=== PATIENT | male | born 1955 | race African-American/Black ===

== ENCOUNTER 2021-03-25 19:31 | Inpatient (IN) | payer OTHER, SELFPAY ==
[~2021-03-25] VITALS: Ht 182.9 cm; Wt 115.7 kg
[2021-03-25 19:31] VITALS: BP_SYST 68
[2021-03-25] MEDS ORDERED: ONDANSETRON HCL 4 MG/2 ML VIAL IVP ONE (20:45)
[2021-03-25] MEDS ORDERED: MORPHINE 4 MG INJ. 4 MG/ML VIAL IVP ONE (20:45)
[2021-03-25 20:59] LABS: EOSINOPHILS # (AUTO) 0.1 K/uL (0.0-0.4); HEMOGLOBIN 10.3 g/dL (14.0-18.0); MONOCYTES # (AUTO) 1.1 K/uL (0.0-1.0); RED CELL DISTRIBUTION WIDTH 20.6 % (9.0-15.0)
[2021-03-25 21:04] LABS: BASOPHILS # (AUTO) 0.1 K/uL (0.0-0.2); BASOPHILS % (AUTO) 0.4 % (0.0-2.0); EOSINOPHILS % (AUTO) 0.5 % (0.0-4.0); HEMATOCRIT 36.3 % (36-54); LYMPHOCYTES # (AUTO) 1.6 K/uL (1.0-5.5); LYMPHOCYTES % (AUTO) 11.3 % (20.5-51.5); MEAN CORPUSCULAR HEMOGLOBIN 23 pg (27-31); MEAN CORPUSCULAR HGB CONC 29 % (32-36); MEAN CORPUSCULAR VOLUME 82 fL (79.0-98.0); MONOCYTES % (AUTO) 7.8 % (1.7-9.3); NEUTROPHILS # (AUTO) 11.2 K/uL (1.8-7.7); RED BLOOD CELL COUNT(AUTO) 4.41 MIL/uL (4.2-6.2)
[2021-03-25 21:07] LABS: PLATELET COUNT (AUTO) 142 K/uL (130-430)
[2021-03-25 21:12] LABS: INR 1.5 (0.80-1.20); PROTHROMBIN TIME 15.4 SECS (9.5-12.5)
[2021-03-25 21:17] LABS: CALCIUM 8.5 mg/dL (8.4-11.0); POTASSIUM 5.5 mmol/L (3.5-5.1)
[2021-03-25 21:32] LABS: ALBUMIN 2.2 g/dL (3.4-4.8); TOTAL BILIRUBIN 0.6 mg/dL (0.0-1.0)
[2021-03-25 21:33] LABS: BILIRUBIN,URINE NEGATIVE (NEGATIVE); BLOOD, URINE 2+ (NEGATIVE); CLARITY/URINE CLEAR (CLEAR); COLOR,URINE YELLOW (YELLOW); GLUCOSE,URINE NEGATIVE (NEGATIVE); KETONES,URINE NEGATIVE (NEGATIVE); LEUKOCYTE ESTERASE ,URINE NEGATIVE (NEGATIVE); NITRITE, URINE NEGATIVE (NEGATIVE); PROTEIN URINE 3+ (NEGATIVE); UROBILINOGEN,URINE 0.2 (0.2-1.0)
[2021-03-25 21:44] LABS: BACTERIA,URINE FEW /HPF (None Seen); HYALINE CASTS, URINE 0-10 /LPF (None Seen); MUCUS,URINE None Seen /LPF (None Seen); RBC,URINE 0-3 /HPF (0-3); WBC,URINE 0-3 /HPF (0-3)
[2021-03-25 21:51] LABS: CREATININE 9.53 mg/dL (0.55-1.30)
[2021-03-25] MEDS ORDERED: NOREPINEPHRINE BITARTRATE 4 MG in NS 246 ML IV ONE ×2 (22:00→22:45)
[2021-03-25] MEDS ORDERED: PROPOFOL DRIP 100 ML IV ONE (22:00)
[2021-03-25] MEDS ORDERED: PIPERACILLIN/TAZO 3.375 GM in NS 50 ML IV ONE (22:30)
[2021-03-25] MEDS ORDERED: VANCOMYCIN HCL 1,000 MG in NS 250 ML IV ONE (22:30)
[2021-03-25] MEDS ORDERED: PIPERACILLIN/TAZOBACTAM 3.375 GM/VIAL (ZOSYN) IV ONE (22:41)
[2021-03-25] MEDS ORDERED: VANCOMYCIN HCL 1000 MG/VIAL IV ONE (22:41)
[2021-03-25] MEDS ORDERED: SODIUM BICARBONATE 8.4% JECT 150 MEQ in D5W 1,000 ML IVP SCH (22:45)
[2021-03-25] MEDS ORDERED: DEXTROSE 50% JECT 50 ML DISP.SYRIN IVP PRN (22:45)
[2021-03-25] MEDS ORDERED: PIPERACILLIN/TAZOBACTAM 2.25 GM in NS 50 ML IV ONE (22:45)
[2021-03-25] MEDS ORDERED: INSULIN REGULAR, HUMAN 100 UNITS/ML, 10 ML VIAL (humuLIN R) SUBCUT PRN (22:45)
[2021-03-25] MEDS ORDERED: SODIUM BICARBONATE 8.4% JECT 50 MEQ/50 ML SYRINGE IVP ONE (23:00)
[2021-03-25] MEDS ORDERED: SODIUM BICARBONATE 8.4% JECT 50 MEQ/50 ML SYRINGE ONE (23:03)
[2021-03-25 23:25] VITALS: BP_SYST 89
[2021-03-25] MEDS ORDERED: NOREPINEPHRINE 4 MG/4 ML VIAL IV ONE (23:38)
[2021-03-25] MEDS ORDERED: ATROPINE SULFATE 0.4 MG/ML VIAL ONE (23:39)
[2021-03-25] MEDS ORDERED: EPINEPHrine JECT 0.1 MG/ML SYR ONE (23:42)
[2021-03-25 23:55] VITALS: BP_SYST 106
[2021-03-26] MEDS ORDERED: ETOMIDATE 20 MG/ 10 ML VIAL (AMIDATE) IVP ONE (08:58)
[2021-03-26] MEDS ORDERED: SUCCINYLCHOLINE CHLORIDE 20 MG/ML(QUELICIN) IVP ONE (08:58)
== END 2021-03-26 00:15 ==
LOC: SED 19:31 → SIC 22:29
PROVIDERS: ADMIT Internal Medicine; ATTEND Internal Medicine
PROC: 0BH17EZ Insertion of Endotracheal Airway into Trachea, Via Natural or Artificial Opening (ICD-10-PCS; principal; 2021-03-25)
PROC: 5A1935Z Respiratory Ventilation, Less than 24 Consecutive Hours (ICD-10-PCS; 2021-03-25)
DX: I21.4 Non-ST elevation (NSTEMI) myocardial infarction (principal); N17.0 Acute kidney failure with tubular necrosis; K72.00 Acute and subacute hepatic failure without coma; E43 Unspecified severe protein-calorie malnutrition; I10 Essential (primary) hypertension; F10.10 Alcohol abuse, uncomplicated; M32.9 Systemic lupus erythematosus, unspecified; R57.0 Cardiogenic shock; D63.1 Anemia in chronic kidney disease; Z20.822 Contact with and (suspected) exposure to COVID-19; Z85.118 Personal history of other malignant neoplasm of bronchus and lung; Z68.34 Body mass index [BMI] 34.0-34.9, adult
CPT/HCPCS: 36415; 36600; 71045; 80053; 81000; 82803-TC; 82962; 83605; 83880; 84484; 85025; 85610-TC; 85730-TC; 86710; 87040-TC; 87070-TC; 87086; 87205-TC; 92950; 93005; 94002; 94640; 96365; 96375; 99291; J0171; J0330; J0461; J2543; J3370; J3490; J7050; J7060